=== PATIENT | female | born 1975 ===

== ENCOUNTER 2017-10-05 17:17 | Inpatient (IN) | payer MEDICARE, OTHER ==
[2017-10-05 17:18] VITALS: BMI 46.4
[2017-10-05 18:58] LABS: BASO # 0.1 K/uL (0.0-0.2); BASO % 0.7 % (0.0-2.0); EOS % 0.4 % (0.0-4.0); HEMOGLOBIN 12.4 g/dL (12.0-16.0); LYMPH # 2.5 K/uL (1.0-4.3); LYMPH % 28.5 % (20.0-40.0); MEAN CELL VOLUME 87.1 fl (81.0-99.0); MEAN CORPUSCULAR HEMOGLOBIN 28.3 pg (27.0-31.0); MEAN CORPUSCULAR HGB CONC 32.5 g/dL (33.0-37.0); MEAN PLATELET VOLUME 8.4 fl (7.2-11.7); MONO # 0.8 K/uL (0.0-0.8); MONO % 8.7 % (0.0-10.0); NEUT # 5.4 K/uL (1.8-7.0); NEUT % 61.7 % (50.0-75.0); RBC 4.39 Mil/uL (3.80-5.20); RED CELL DISTRIBUTION WIDTH 14.8 % (11.5-14.5); WHITE BLOOD COUNT 8.7 K/uL (4.8-10.8)
--- NOTE | 2017-10-05 18:58 | ED PDOC ---
HPI: Chest Pain Time Seen by Provider: 10/05/17 18:16 Chief Complaint (Nursing): Chest Pain Chief Complaint (Provider): Chest Pain History Per: Patient History/Exam Limitations: no limitations Onset/Duration Of Symptoms: Days (x2) Current Symptoms Are (Timing): Still Present Additional Complaint(s): 41 year old female with medical history of DVT/PE/HTN and DM, presents to the emergency department with a complaint of mid-sternal pressure associated with shortness of breath and right lower leg pain ongoing for 2 days. Patient offers no further complaints and compliant with her Xarelto. Past Medical History Reviewed: Historical Data, Nursing Documentation, Vital Signs Vital Signs: Last Vital Signs Temp 97.6 F 10/09/17 12:48 Pulse 58 L 10/09/17 12:48 Resp 20 10/09/17 12:48 BP 108/74 10/09/17 12:48 Pulse Ox 98 10/09/17 12:48 - Medical History PMH: Anxiety, Asthma, Bronchitis, HTN - Surgical History Surgical History: Cholecystectomy - Family History Family History: States: Unknown Family Hx - Immunization History Hx Tetanus Toxoid Vaccination: No Hx Influenza Vaccination: Yes Hx Pneumococcal Vaccination: Yes - Home Medications Home Medications: Ambulatory Orders Medication Instructions Recorded Famotidine [Pepcid] 20 mg PO DAILY #20 tab 05/25/17 Rivaroxaban [Xarelto] 20 mg PO DAILY 10/05/17 Ondansetron ODT [Zofran ODT] 4 mg PO Q8H PRN #21 odt 10/09/17 - Allergies Allergies/Adverse Reactions: Allergies Allergy/AdvReac Type Severity Reaction Status Date / Time egg Allergy RASH Verified 10/05/17 17:35 mushroom Allergy RASH Verified 10/05/17 17:35 caffeine AdvReac DIZZINESS Verified 10/05/17 17:35 Milk Containing Products AdvReac RASH Verified 10/05/17 17:35 augmentin Allergy Mild RASH Uncoded 10/05/17 17:35 pollen Allergy SHORTNESS Uncoded 10/05/17 17:35 OF BREATH Review of Systems ROS Statement: Except As Marked, All Systems Reviewed And Found Negative Cardiovascular: Positive for: Chest Pain (mid-sternum pressure) Respiratory: Positive for: Shortness of Breath Musculoskeletal: Positive for: Leg Pain (lower right) Physical Exam - Reviewed Nursing Documentation Reviewed: Yes Vital Signs Reviewed: Yes - Physical Exam Appears: Positive for: No Acute Distress Head Exam: Positive for: ATRAUMATIC, NORMAL INSPECTION, NORMOCEPHALIC Skin: Positive for: Normal Color Eye Exam: Positive for: Normal appearance ENT: Positive for: Normal ENT Inspection Neck: Positive for: Normal Cardiovascular/Chest: Positive for: Regular Rate, Rhythm, Other (mid-sternum tenderness). Negative for: Chest Non Tender, Murmur Respiratory: Positive for: Normal Breath Sounds Gastrointestinal/Abdominal: Positive for: Normal Exam, Soft. Negative for: Tenderness Back: Positive for: Normal Inspection. Negative for: L CVA Tenderness, R CVA Tenderness Extremity: Positive for: Pedal Edema (1+ bilaterally), Calf Tenderness ( bilaterally) Neurologic/Psych: Positive for: Alert, Oriented. Negative for: Motor/Sensory Deficits - Laboratory Results Result Diagrams: 10/09/17 04:20 10/09/17 04:20 - ECG O2 Sat by Pulse Oximetry: 98 (RA) Pulse Ox Interpretation: Normal Medical Decision Making Medical Decision Making: Initial Impression: Chest pain; Shortness of breath; Lower extremity pain Initial Plan: * CTA chest * EKG * CMP * Troponin I * Urine * Urine dipstick * CBC * D Dimer * PTT * PT * CXR * UA * US duplex LE bilaterally Scribe Attestation: Documented by Muriel Valero, acting as a scribe for Mary Sarkar MD. Provider Scribe Attestation: All medical record entries made by the Scribe were at my direction and personally dictated by me. I have reviewed the chart and agree that the record accurately reflects my personal performance of the history, physical exam, medical decision making, and the department course for this patient. I have also personally directed, reviewed, and agree with the discharge instructions and disposition. Disposition - Clinical Impression Clinical Impression: Chest pain - Patient ED Disposition Is Patient to be Admitted: Transfer of Care - Disposition Disposition Time: 19:00 Condition: STABLE Patient Signed Over To: Andrew Navarro
[2017-10-05 19:09] LABS: ALB/GLOB RATIO 1.3 (1.0-2.1); ALBUMIN 3.9 g/dL (3.5-5.0); ALT/SGPT 24 U/L (9-52); AST/SGOT 32 U/L (14-36); BLOOD UREA NITROGEN 14 mg/dl (7-17); CALCIUM 8.9 mg/dL (8.4-10.2); GFR AFRICAN-AMERICAN > 60; GFR NON-AFRICAN AMERICAN > 60
[2017-10-05 19:13] LABS: INR 1.1 (0.9-1.2); PROTHROMBIN TIME 11.7 Seconds (9.8-13.1)
[2017-10-05 19:14] LABS: PARTIAL THROMBOPLASTIN TIME 30.6 Seconds (25.6-37.1)
[2017-10-05] MEDS ORDERED: Sodium Chloride 0.9% 100 ML ONE (19:15)
[2017-10-05] MEDS ORDERED: Iodixanol 320 MG/ML 100 ML BOTTLE IV ONE (19:15)
--- NOTE | 2017-10-05 19:32 | ED PDOC ---
- Laboratory Results Result Diagrams: 10/05/17 18:52 10/05/17 18:52 - ECG O2 Sat by Pulse Oximetry: 98 (RA) Medical Decision Making Medical Decision Making: Time: 1899 --Patient is endorsed to provider by Dr. Sarkar, pending CT/US results and final disposition. Time: 1939 --US bilateral LE FINDINGS: Right deep veins: Unremarkable. No DVT in the right common femoral, femoral, proximal deep femoral or popliteal veins. The veins demonstrate normal color flow, are normally compressible, with normal phasic flow and/or augmentation response. Right superficial veins: Unremarkable. No thrombus in the visualized right great saphenous vein. Left deep veins: Unremarkable. No DVT in the left common femoral, femoral, proximal deep femoral or popliteal veins. The veins demonstrate normal color flow, are normally compressible, with normal phasic flow and/or augmentation response. Left superficial veins: Unremarkable. No thrombus in the visualized left great saphenous vein. IMPRESSION: No evidence of acute deep venous thrombosis in the bilateral lower extremities. Time: 2024 --CTA chest FINDINGS: Pulmonary arteries: No evidence of acute pulmonary embolism up to the major segmental level.One or more very small peripheral pulmonary emboli cannot be excluded. Correlate clinically. Aorta: No acute findings. No thoracic aortic aneurysm. Lungs: Granuloma in the right middle lobe. No consolidation. Pleural space: Unremarkable. No significant effusion. No pneumothorax. Heart: Unremarkable. No cardiomegaly. No significant pericardial effusion. No evidence of RV dysfunction. Bones/joints: No acute fracture. No dislocation. Soft tissues: Unremarkable. Lymph nodes: Unremarkable. No enlarged lymph nodes. Liver: 5.3 cm hypodensity in the liver. Gallbladder and bile ducts: Cholecystectomy clips Adrenals: Right adrenal thickening. IMPRESSION: 1. No evidence of acute pulmonary embolism up to the major segmental level.One or more very small peripheral pulmonary emboli cannot be excluded. Correlate clinically. 2. 5.3 cm hypodensity in the liver. Correlate with ultrasound. Time: 2032 --Patient continues to report persistent pain. Will be admitted to telemetry for chest pain to R/O ACS. --Vitals are currently stable. Scribe Attestation: Documented by Muriel Valero, acting as a scribe for Andrew Navarro MD. Provider Scribe Attestation: All medical record entries made by the Scribe were at my direction and personally dictated by me. I have reviewed the chart and agree that the record accurately reflects my personal performance of the history, physical exam, medical decision making, and the department course for this patient. I have also personally directed, reviewed, and agree with the discharge instructions and disposition. Disposition Discussed With : Jim Sahu Doctor Will See Patient In The: Hospital Counseled Patient/Family Regarding: Studies Performed, Diagnosis - Clinical Impression Clinical Impression: Chest pain - POA Present On Arrival: None - Disposition Disposition: Hospitalized as Observation Patient Disposition Time: 21:00 Condition: FAIR
[2017-10-05 20:14] LABS: SQUAMOUS EPITHIAL 2 /hpf (0-5); URINE BILIRUBIN NEGATIVE (NEGATIVE); URINE BLOOD NEGATIVE (NEGATIVE); URINE CLARITY SLIGHTY-CLOUDY (Clear); URINE COLOR YELLOW (YELLOW); URINE GLUCOSE (UA) NEG (Normal); URINE LEUKOCYTE ESTERASE NEG Leu/uL (Negative); URINE PROTEIN NEGATIVE (NEGATIVE); URINE UROBILINOGEN 0.2-1.0 mg/dL (0.2-1.0)
--- NOTE | 2017-10-06 08:24 | RAD ---
HISTORY: CP COMPARISON: Chest radiographs 06/22/2013. FINDINGS: LUNGS: No active pulmonary disease. PLEURA: No significant pleural effusion identified, no pneumothorax apparent. CARDIOVASCULAR: Normal. OSSEOUS STRUCTURES: No significant abnormalities. VISUALIZED UPPER ABDOMEN: Normal. OTHER FINDINGS: None. IMPRESSION: No interval acute cardiopulmonary disease appreciated.
--- NOTE | 2017-10-06 08:36 | CP.PCM.HP ---
<Stephanie Albright - Last Filed: 10/06/17 15:11> History of Present Illness - History of Present Illness History of Present Illness: 41 yo F with PM hypertension, DVT/PE, diabetes (?) presented to ED with compaint of mid-sternal pressure associated with shortness of breath and right lower leg pain ongoing for 2 days. CTA chest - no pulm embolus; no pneumothorax. small granuloma in right middle lobe. incidental 5.3 cm lucency in medial left lobe liver. CXR: no active acute disease EKG: sinus, no acute changes in leads B/l LE Duplex: no DVT CMP unremarkable Troponin I - neg x2 CBC unremarkable D Dimer 165 PTT/PT/ INR wnl When seen this morning on the floor, she stated chest pain had improved but complained of abdominal pain/discomfort when defecating and overall. Present on Admission - Present on Admission Any Indicators Present on Admission: No Review of Systems - Review of Systems All systems: reviewed and no additional remarkable complaints except (as per HPI ) Past Patient History - Past Medical History & Family History Past Medical History?: Yes - Past Social History Smoking Status: Never Smoked - CARDIAC Hx Cardiac Disorders: Yes Hx Hypertension: Yes - PULMONARY Hx Respiratory Disorders: Yes Hx Asthma: Yes Hx Bronchitis: Yes Hx Pulmonary Embolism: Yes - NEUROLOGICAL Hx Neurological Disorder: No - HEMATOLOGICAL/ONCOLOGICAL Hx Blood Disorders: Yes Hx Anemia: Yes Other/Comment: dvt - INTEGUMENTARY Hx Dermatological Problems: No - MUSCULOSKELETAL/RHEUMATOLOGICAL Hx Musculoskeletal Disorders: No Hx Falls: No - GASTROINTESTINAL Hx Gastrointestinal Disorders: Yes Other/Comment: H.pylori - GENITOURINARY/GYNECOLOGICAL Hx Genitourinary Disorders: No - PSYCHIATRIC Hx Psychophysiologic Disorder: Yes Hx Anxiety: Yes Hx Substance Use: No - SURGICAL HISTORY Hx Surgeries: Yes Hx Section: Yes (x2) Hx Cholecystectomy: Yes Hx Tubal Ligation: Yes Other/Comment: Ovarian cyst removal. cyst removal from head due to fluids (as per fluids) - ANESTHESIA Hx Anesthesia: Yes Hx Anesthesia Reactions: No Meds Allergies/Adverse Reactions: Allergies Allergy/AdvReac Type Severity Reaction Status Date / Time egg Allergy RASH Verified 10/05/17 17:35 mushroom Allergy RASH Verified 10/05/17 17:35 caffeine AdvReac DIZZINESS Verified 10/05/17 17:35 Milk Containing Products AdvReac RASH Verified 10/05/17 17:35 augmentin Allergy Mild RASH Uncoded 10/05/17 17:35 pollen Allergy SHORTNESS Uncoded 10/05/17 17:35 OF BREATH Physical Exam - Constitutional Appears: No Acute Distress - Eye Exam Eye Exam: Normal appearance - ENT Exam ENT Exam: Mucous Membranes Moist - Respiratory Exam Respiratory Exam: Clear to Auscultation Bilateral, NORMAL BREATHING PATTERN. absent: Respiratory Distress - Cardiovascular Exam Cardiovascular Exam: REGULAR RHYTHM - GI/Abdominal Exam GI & Abdominal Exam: Normal Bowel Sounds, Soft, Tenderness - Extremities Exam Extremities exam: Positive for: normal inspection. Negative for: calf tenderness - Neurological Exam Neurological exam: Alert - Skin Skin Exam: Normal Color, Warm Results - Vital Signs Recent Vital Signs: Last Vital Signs Temp 97.8 F 10/06/17 08:26 Pulse 60 10/06/17 08:26 Resp 18 10/06/17 08:26 BP 104/69 10/06/17 08:26 Pulse Ox 99 10/06/17 08:26 - Labs Result Diagrams: 10/06/17 08:50 10/06/17 08:57 Labs: Laboratory Results - last 24 hr 10/05/17 10/05/17 10/05/17 18:52 18:52 18:52 WBC 8.7 RBC 4.39 Hgb 12.4 Hct 38.2 MCV 87.1 D MCH 28.3 MCHC 32.5 L RDW 14.8 H Plt Count 250 MPV 8.4 Neut % (Auto) 61.7 Lymph % (Auto) 28.5 [place] % (Auto) 8.7 Eos % (Auto) 0.4 Baso % (Auto) 0.7 Neut # (Auto) 5.4 Lymph # (Auto) 2.5 [place] # (Auto) 0.8 Eos # (Auto) 0.0 Baso # (Auto) 0.1 PT 11.7 INR 1.1 APTT 30.6 D-Dimer, Quantitative 165 Sodium 140 Potassium 4.1 Chloride 102 Carbon Dioxide 27 Anion Gap 15 BUN 14 Creatinine 0.8 Est GFR ( Amer) > 60 Est GFR (Non-Af Amer) > 60 POC Glucose (mg/dL) Random Glucose 89 Calcium 8.9 Total Bilirubin 0.4 AST 32 ALT 24 Alkaline Phosphatase 73 Troponin I < 0.0120 Total Protein 7.0 Albumin 3.9 Globulin 3.1 Albumin/Globulin Ratio 1.3 Urine Color Urine Clarity Urine pH Ur Specific [place] Urine Protein Urine Glucose (UA) Urine Ketones Urine Blood Urine Nitrate Urine Bilirubin Urine Urobilinogen Ur Leukocyte Esterase Ur Squamous Epith Cells 10/05/17 10/05/17 10/06/17 19:12 22:44 03:35 WBC RBC Hgb Hct MCV MCH MCHC RDW Plt Count MPV Neut % (Auto) Lymph % (Auto) [place] % (Auto) Eos % (Auto) Baso % (Auto) Neut # (Auto) Lymph # (Auto) [place] # (Auto) Eos # (Auto) Baso # (Auto) PT INR APTT D-Dimer, Quantitative Sodium Potassium Chloride Carbon Dioxide Anion Gap BUN Creatinine Est GFR ( Amer) Est GFR (Non-Af Amer) POC Glucose (mg/dL) 95 94 Random Glucose Calcium Total Bilirubin AST ALT Alkaline Phosphatase Troponin I Total Protein Albumin Globulin Albumin/Globulin Ratio Urine Color Yellow Urine Clarity Slighty-cloudy Urine pH 5.0 Ur Specific [place] 1.029 Urine Protein Negative Urine Glucose (UA) Neg Urine Ketones Trace Urine Blood Negative Urine Nitrate Negative Urine Bilirubin Negative Urine Urobilinogen 0.2-1.0 Ur Leukocyte Esterase Neg Ur Squamous Epith Cells 2 10/06/17 05:39 WBC RBC Hgb Hct MCV MCH MCHC RDW Plt Count MPV Neut % (Auto) Lymph % (Auto) [place] % (Auto) Eos % (Auto) Baso % (Auto) Neut # (Auto) Lymph # (Auto) [place] # (Auto) Eos # (Auto) Baso # (Auto) PT INR APTT D-Dimer, Quantitative Sodium Potassium Chloride Carbon Dioxide Anion Gap BUN Creatinine Est GFR ( Amer) Est GFR (Non-Af Amer) POC Glucose (mg/dL) 94 Random Glucose Calcium Total Bilirubin AST ALT Alkaline Phosphatase Troponin I Total Protein Albumin Globulin Albumin/Globulin Ratio Urine Color Urine Clarity Urine pH Ur Specific [place] Urine Protein Urine Glucose (UA) Urine Ketones Urine Blood Urine Nitrate Urine Bilirubin Urine Urobilinogen Ur Leukocyte Esterase Ur Squamous Epith Cells Assessment & Plan - Assessment and Plan (Free Text) Assessment: 41 yo F with PMH HTN, DVT/PE admitted for chest pain to r/o ACS, as well as having abdominal pain. Found to have liver nodule. Plan: - Admit to tele - Trend troponins Q8h - Resume home meds - Cardio consult - GI consult, liver u/s <Sahu,Jim K - Last Filed: 10/07/17 22:45> Results - Vital Signs Recent Vital Signs: Last Vital Signs Temp 98.5 F 10/07/17 17:08 Pulse 61 10/07/17 17:08 Resp 17 10/07/17 17:08 BP 111/75 10/07/17 17:08 Pulse Ox 98 10/07/17 17:08 - Labs Result Diagrams: 10/06/17 08:50 10/06/17 08:57 Labs: Laboratory Results - last 24 hr 10/06/17 10/06/17 10/07/17 11:44 23:17 03:34 POC Glucose (mg/dL) 83 87 C. difficile Ag & Toxin Negative 10/07/17 10/07/17 10/07/17 05:41 11:18 16:08 POC Glucose (mg/dL) 97 97 90 C. difficile Ag & Toxin Assessment & Plan - Assessment and Plan (Free Text) Plan: Patient was personally seen and examined by me in rounds with residents. Available labs and diagnostic data reviewed. Case, Patient's condition and management plan discussed with residents in rounds. Agree with resident's progress note. Plan: As ordered.
--- NOTE | 2017-10-06 08:43 | CP.PCM.CON ---
<Nisa Ramirez - Last Filed: 10/06/17 12:18> History of Present Illness - History of Present Illness History of Present Illness: PGY5 GI Initial Consult Elizabeth Khanna is a 41F w/ hx of DVT, HTN, PE who presented to the ER with complaints of epigastric pain, lower abd pain. Pt states that the pain started 3 days prior. She notes that it initially was in the epigastric area and radiated to the lower chest. She note that she also had associated diarrhea. She described the pain as sharp and rated it a 7 out of 10. She noted that it eventually subsided. She states that later that day, she started to experience suprapubic pain that radiated to the RLQ and to her upper back. She noted that her diarrhea continued. She was having x5 BM daily w/o blood or melena. She notes that she has 2 sick family members in the house. +fever. Denies any previous colonscopy or endoscopy. Was previously treated for H. Pylori in FEB, but never confirmed eradication. PMHx: DVT, PE, HTN, anxiety PSHx: denies Social hx: denies etoh, illicit drugs, and smoking Family hx: DVT, PE ROS: 12 point ROS conducted neg other than above Past Patient History - Past Medical History & Family History Past Medical History?: Yes - Past Social History Smoking Status: Never Smoked - CARDIAC Hx Cardiac Disorders: Yes Hx Hypertension: Yes - PULMONARY Hx Respiratory Disorders: Yes Hx Asthma: Yes Hx Bronchitis: Yes Hx Pulmonary Embolism: Yes - NEUROLOGICAL Hx Neurological Disorder: No - HEMATOLOGICAL/ONCOLOGICAL Hx Blood Disorders: Yes Hx Anemia: Yes Other/Comment: dvt - INTEGUMENTARY Hx Dermatological Problems: No - MUSCULOSKELETAL/RHEUMATOLOGICAL Hx Musculoskeletal Disorders: No Hx Falls: No - GASTROINTESTINAL Hx Gastrointestinal Disorders: Yes Other/Comment: H.pylori - GENITOURINARY/GYNECOLOGICAL Hx Genitourinary Disorders: No - PSYCHIATRIC Hx Psychophysiologic Disorder: Yes Hx Anxiety: Yes Hx Substance Use: No - SURGICAL HISTORY Hx Surgeries: Yes Hx Section: Yes (x2) Hx Cholecystectomy: Yes Hx Tubal Ligation: Yes Other/Comment: Ovarian cyst removal. cyst removal from head due to fluids (as per fluids) - ANESTHESIA Hx Anesthesia: Yes Hx Anesthesia Reactions: No Meds Allergies/Adverse Reactions: Allergies Allergy/AdvReac Type Severity Reaction Status Date / Time egg Allergy RASH Verified 10/05/17 17:35 mushroom Allergy RASH Verified 10/05/17 17:35 caffeine AdvReac DIZZINESS Verified 10/05/17 17:35 Milk Containing Products AdvReac RASH Verified 10/05/17 17:35 augmentin Allergy Mild RASH Uncoded 10/05/17 17:35 pollen Allergy SHORTNESS Uncoded 10/05/17 17:35 OF BREATH - Medications Medications: Current Medications Acetaminophen (Tylenol 325mg Tab) 650 mg PO Q6 PRN PRN Reason: Pain, moderate (4-7) Last Admin: 10/06/17 01:19 Dose: 650 mg Ondansetron HCl (Zofran Odt) 4 mg PO Q8H PRN PRN Reason: Nausea/Vomiting Last Admin: 10/06/17 01:19 Dose: 4 mg Physical Exam - Constitutional Appears: Well, No Acute Distress - Head Exam Head Exam: ATRAUMATIC, NORMOCEPHALIC - Eye Exam Eye Exam: Normal appearance - ENT Exam ENT Exam: Mucous Membranes Moist, Normal Exam - Respiratory Exam Respiratory Exam: Clear to Auscultation Bilateral, NORMAL BREATHING PATTERN. absent: Rales, Rhonchi, Wheezes, Respiratory Distress - Cardiovascular Exam Cardiovascular Exam: REGULAR RHYTHM, +S1, +S2 - GI/Abdominal Exam GI & Abdominal Exam: Hyperactive Bowel Sounds, Soft, Tenderness (suprapubic). absent: Distended, Firm, Guarding, Organomegaly, Pulsatile Mass, Rebound, Rigid - Extremities Exam Extremities exam: Negative for: joint swelling, pedal edema - Neurological Exam Neurological exam: Alert, Oriented x3 - Psychiatric Exam Psychiatric exam: Normal Affect, Normal Mood - Skin Skin Exam: Dry, Intact, Normal Color, Warm Results - Vital Signs Recent Vital Signs: Last Vital Signs Temp 97.8 F 10/06/17 08:26 Pulse 60 10/06/17 08:26 Resp 18 10/06/17 08:26 BP 104/69 10/06/17 08:26 Pulse Ox 99 10/06/17 08:26 - Labs Result Diagrams: 10/06/17 08:50 10/06/17 08:57 Labs: Laboratory Results - last 24 hr 10/05/17 10/05/17 10/05/17 18:52 18:52 18:52 WBC 8.7 RBC 4.39 Hgb 12.4 Hct 38.2 MCV 87.1 D MCH 28.3 MCHC 32.5 L RDW 14.8 H Plt Count 250 MPV 8.4 Neut % (Auto) 61.7 Lymph % (Auto) 28.5 [place] % (Auto) 8.7 Eos % (Auto) 0.4 Baso % (Auto) 0.7 Neut # (Auto) 5.4 Lymph # (Auto) 2.5 [place] # (Auto) 0.8 Eos # (Auto) 0.0 Baso # (Auto) 0.1 PT 11.7 INR 1.1 APTT 30.6 D-Dimer, Quantitative 165 Sodium 140 Potassium 4.1 Chloride 102 Carbon Dioxide 27 Anion Gap 15 BUN 14 Creatinine 0.8 Est GFR ( Amer) > 60 Est GFR (Non-Af Amer) > 60 POC Glucose (mg/dL) Random Glucose 89 Calcium 8.9 Total Bilirubin 0.4 AST 32 ALT 24 Alkaline Phosphatase 73 Troponin I < 0.0120 Total Protein 7.0 Albumin 3.9 Globulin 3.1 Albumin/Globulin Ratio 1.3 Urine Color Urine Clarity Urine pH Ur Specific [place] Urine Protein Urine Glucose (UA) Urine Ketones Urine Blood Urine Nitrate Urine Bilirubin Urine Urobilinogen Ur Leukocyte Esterase Ur Squamous Epith Cells 10/05/17 10/05/17 10/06/17 19:12 22:44 03:35 WBC RBC Hgb Hct MCV MCH MCHC RDW Plt Count MPV Neut % (Auto) Lymph % (Auto) [place] % (Auto) Eos % (Auto) Baso % (Auto) Neut # (Auto) Lymph # (Auto) [place] # (Auto) Eos # (Auto) Baso # (Auto) PT INR APTT D-Dimer, Quantitative Sodium Potassium Chloride Carbon Dioxide Anion Gap BUN Creatinine Est GFR ( Amer) Est GFR (Non-Af Amer) POC Glucose (mg/dL) 95 94 Random Glucose Calcium Total Bilirubin AST ALT Alkaline Phosphatase Troponin I Total Protein Albumin Globulin Albumin/Globulin Ratio Urine Color Yellow Urine Clarity Slighty-cloudy Urine pH 5.0 Ur Specific [place] 1.029 Urine Protein Negative Urine Glucose (UA) Neg Urine Ketones Trace Urine Blood Negative Urine Nitrate Negative Urine Bilirubin Negative Urine Urobilinogen 0.2-1.0 Ur Leukocyte Esterase Neg Ur Squamous Epith Cells 2 10/06/17 05:39 WBC RBC Hgb Hct MCV MCH MCHC RDW Plt Count MPV Neut % (Auto) Lymph % (Auto) [place] % (Auto) Eos % (Auto) Baso % (Auto) Neut # (Auto) Lymph # (Auto) [place] # (Auto) Eos # (Auto) Baso # (Auto) PT INR APTT D-Dimer, Quantitative Sodium Potassium Chloride Carbon Dioxide Anion Gap BUN Creatinine Est GFR ( Amer) Est GFR (Non-Af Amer) POC Glucose (mg/dL) 94 Random Glucose Calcium Total Bilirubin AST ALT Alkaline Phosphatase Troponin I Total Protein Albumin Globulin Albumin/Globulin Ratio Urine Color Urine Clarity Urine pH Ur Specific [place] Urine Protein Urine Glucose (UA) Urine Ketones Urine Blood Urine Nitrate Urine Bilirubin Urine Urobilinogen Ur Leukocyte Esterase Ur Squamous Epith Cells Assessment & Plan - Assessment and Plan (Free Text) Assessment: Elizabeth Khanna is a 41F w/ hx of HTN, DVT, PE who presented with abd pain, chest pain, and diarrhea Abd pain, etiology unknoww; DDx: gastroenteritis, mesenteric ischemia? Nausea (resolved) Diarrhea, r/o infectous etiology Hypodense lesion liver Plan: -hold abx for now -continue IV fluids -diet as tolerated -stool for c.diff, O&P, Culture -CT angio pending -zofran PRN -PPI 40mg daily -supportive care -will need a triple phase liver CT to eval liver lesion D/W Dr. Chen <Kitty Chen - Last Filed: 10/06/17 15:40> Meds - Medications Medications: Current Medications Acetaminophen (Tylenol 325mg Tab) 650 mg PO Q6 PRN PRN Reason: Pain, moderate (4-7) Last Admin: 10/06/17 09:58 Dose: 650 mg Famotidine (Pepcid) 20 mg PO DAILY [facility] Ondansetron HCl (Zofran Odt) 4 mg PO Q8H PRN PRN Reason: Nausea/Vomiting Last Admin: 10/06/17 01:19 Dose: 4 mg Rivaroxaban (Xarelto) 20 mg PO DAILY [facility] PRN Reason: Protocol Results - Vital Signs Recent Vital Signs: Last Vital Signs Temp 97.9 F 10/06/17 12:14 Pulse 56 L 10/06/17 12:14 Resp 18 10/06/17 12:14 BP 106/71 10/06/17 12:14 Pulse Ox 98 10/06/17 12:14 - Labs Result Diagrams: 10/06/17 08:50 10/06/17 08:57 Labs: Laboratory Results - last 24 hr 10/05/17 10/05/17 10/05/17 18:52 18:52 18:52 WBC 8.7 RBC 4.39 Hgb 12.4 Hct 38.2 MCV 87.1 D MCH 28.3 MCHC 32.5 L RDW 14.8 H Plt Count 250 MPV 8.4 Neut % (Auto) 61.7 Lymph % (Auto) 28.5 [place] % (Auto) 8.7 Eos % (Auto) 0.4 Baso % (Auto) 0.7 Neut # (Auto) 5.4 Lymph # (Auto) 2.5 [place] # (Auto) 0.8 Eos # (Auto) 0.0 Baso # (Auto) 0.1 PT 11.7 INR 1.1 APTT 30.6 D-Dimer, Quantitative 165 Sodium 140 Potassium 4.1 Chloride 102 Carbon Dioxide 27 Anion Gap 15 BUN 14 Creatinine 0.8 Est GFR ( Amer) > 60 Est GFR (Non-Af Amer) > 60 POC Glucose (mg/dL) Random Glucose 89 Hemoglobin A1c Calcium 8.9 Total Bilirubin 0.4 AST 32 ALT 24 Alkaline Phosphatase 73 Troponin I < 0.0120 Total Protein 7.0 Albumin 3.9 Globulin 3.1 Albumin/Globulin Ratio 1.3 Triglycerides Cholesterol LDL Cholesterol Direct HDL Cholesterol Vitamin B12 TSH 3rd Generation Urine Color Urine Clarity Urine pH Ur Specific [place] Urine Protein Urine Glucose (UA) Urine Ketones Urine Blood Urine Nitrate Urine Bilirubin Urine Urobilinogen Ur Leukocyte Esterase Ur Squamous Epith Cells 10/05/17 10/05/17 10/06/17 19:12 22:44 03:35 WBC RBC Hgb Hct MCV MCH MCHC RDW Plt Count MPV Neut % (Auto) Lymph % (Auto) [place] % (Auto) Eos % (Auto) Baso % (Auto) Neut # (Auto) Lymph # (Auto) [place] # (Auto) Eos # (Auto) Baso # (Auto) PT INR APTT D-Dimer, Quantitative Sodium Potassium Chloride Carbon Dioxide Anion Gap BUN Creatinine Est GFR ( Amer) Est GFR (Non-Af Amer) POC Glucose (mg/dL) 95 94 Random Glucose Hemoglobin A1c Calcium Total Bilirubin AST ALT Alkaline Phosphatase Troponin I Total Protein Albumin Globulin Albumin/Globulin Ratio Triglycerides Cholesterol LDL Cholesterol Direct HDL Cholesterol Vitamin B12 TSH 3rd Generation Urine Color Yellow Urine Clarity Slighty-cloudy Urine pH 5.0 Ur Specific [place] 1.029 Urine Protein Negative Urine Glucose (UA) Neg Urine Ketones Trace Urine Blood Negative Urine Nitrate Negative Urine Bilirubin Negative Urine Urobilinogen 0.2-1.0 Ur Leukocyte Esterase Neg Ur Squamous Epith Cells 2 10/06/17 10/06/17 10/06/17 05:39 08:50 08:50 WBC 6.6 RBC 4.38 Hgb 12.4 Hct 38.2 MCV 87.4 MCH 28.2 MCHC 32.3 L RDW 15.0 H Plt Count 244 MPV Neut % (Auto) Lymph % (Auto) [place] % (Auto) Eos % (Auto) Baso % (Auto) Neut # (Auto) Lymph # (Auto) [place] # (Auto) Eos # (Auto) Baso # (Auto) PT INR APTT D-Dimer, Quantitative Sodium Potassium Chloride Carbon Dioxide Anion Gap BUN Creatinine Est GFR ( Amer) Est GFR (Non-Af Amer) POC Glucose (mg/dL) 94 Random Glucose Hemoglobin A1c 5.7 Calcium Total Bilirubin AST ALT Alkaline Phosphatase Troponin I Total Protein Albumin Globulin Albumin/Globulin Ratio Triglycerides Cholesterol LDL Cholesterol Direct HDL Cholesterol Vitamin B12 TSH 3rd Generation Urine Color Urine Clarity Urine pH Ur Specific [place] Urine Protein Urine Glucose (UA) Urine Ketones Urine Blood Urine Nitrate Urine Bilirubin Urine Urobilinogen Ur Leukocyte Esterase Ur Squamous Epith Cells 10/06/17 10/06/17 10/06/17 08:50 08:57 14:45 WBC RBC Hgb Hct MCV MCH MCHC RDW Plt Count MPV Neut % (Auto) Lymph % (Auto) [place] % (Auto) Eos % (Auto) Baso % (Auto) Neut # (Auto) Lymph # (Auto) [place] # (Auto) Eos # (Auto) Baso # (Auto) PT INR APTT D-Dimer, Quantitative Sodium 139 Potassium 4.3 Chloride 103 Carbon Dioxide 28 Anion Gap 12 BUN 10 Creatinine 0.7 Est GFR ( Amer) > 60 Est GFR (Non-Af Amer) > 60 POC Glucose (mg/dL) Random Glucose 90 Hemoglobin A1c Calcium 8.7 Total Bilirubin 0.4 AST 31 ALT 28 Alkaline Phosphatase 74 Troponin I < 0.0120 < 0.0120 Total Protein 6.6 Albumin 3.7 Globulin 2.9 Albumin/Globulin Ratio 1.3 Triglycerides 82 Cholesterol 144 LDL Cholesterol Direct 72 HDL Cholesterol 39 Vitamin B12 320 TSH 3rd Generation 3.95 Urine Color Urine Clarity Urine pH Ur Specific [place] Urine Protein Urine Glucose (UA) Urine Ketones Urine Blood Urine Nitrate Urine Bilirubin Urine Urobilinogen Ur Leukocyte Esterase Ur Squamous Epith Cells Attending/Attestation - Attestation I have personally seen and examined this patient.: Yes I have fully participated in the care of the patient.: Yes I have reviewed all pertinent clinical information: Yes Notes (Text): 10/06/17 15:38 Patient seen and examined at bedside this am. This is a 41 yr old F w/ hx of HTN , DVT, PE not on anti coagulation or anti platelet who presented with abdominal pain, chest pain, and diarrhea. ON CT angiogram an incidental lesion found in the liver. Will get triple phase Ct scan with IV contrast to evaluate the liver lesion further and rule out malignancy vs clot. Diet as tolerated. Rest of plan after Ct scan
[2017-10-06 09:05] LABS: HEMOGLOBIN 12.4 g/dL (12.0-16.0); MEAN CELL VOLUME 87.4 fl (81.0-99.0); MEAN CORPUSCULAR HEMOGLOBIN 28.2 pg (27.0-31.0); MEAN CORPUSCULAR HGB CONC 32.3 g/dL (33.0-37.0); RBC 4.38 Mil/uL (3.80-5.20); WHITE BLOOD COUNT 6.6 K/uL (4.8-10.8)
--- NOTE | 2017-10-06 10:23 | CT ---
PROCEDURE: CT Chest with contrast (Pulmonary Angiogram) HISTORY: CP COMPARISON: None available. TECHNIQUE: Axial computed tomography images were obtained of the chest in the pulmonary arterial phase of enhancement. Coronal and sagittal reformatted images were created and reviewed. Intravenous contrast dose: Visipaque 320, 95 cc Radiation dose: Total exam DLP = 496.58 mGy-cm. This CT exam was performed using one or more of the following dose reduction techniques: Automated exposure control, adjustment of the mA and/or kV according to patient size, and/or use of iterative reconstruction technique. FINDINGS: PULMONARY ARTERIES: Unremarkable. No pulmonary embolism. AORTA: No acute findings. No thoracic aortic aneurysm. LUNGS: A 5 mm calcified granuloma seen the right middle lobe base anteriorly. Lung viera are otherwise unremarkable bilaterally. No suspicious nodule, mass or pulmonary consolidation. PLEURAL SPACES: Unremarkable. No effusion or pneuomothorax. HEART: Unremarkable. No cardiomegaly. No significant pericardial effusion. LYMPH NODES: No lymphadenopathy. BONES, CHEST WALL: Unremarkable. No fracture or destructive lesion OTHER FINDINGS: Incidental prior cholecystectomy. A 5.3 by 4.8 cm lucency seen at the medial left lobe liver potentially reflecting focal fatty infiltration. Follow-up ultrasound of the abdomen is advised for additional characterization or MRI with and without contrast. IMPRESSION: Unremarkable CT pulmonary angiogram. No pulmonary embolus. A small calcified granuloma is seen at the right middle lobe inferiorly. No alveolitis, pleural or pericardial effusion. No pneumothorax. Incidental 5.3 cm lucency medial left lobe liver for which follow-up ultrasound the abdomen is recommended. Prior cholecystectomy incidentally noted as well.
--- NOTE | 2017-10-06 11:28 | US ---
PROCEDURE: Bilateral lower extremity venous duplex Doppler. HISTORY: BLE pain COMPARISON: None available. TECHNIQUE: Bilateral common femoral, superficial femoral, popliteal and posterior tibial veins were evaluated. Flow was assessed with color Doppler, compressibility, assessment of phasic flow and augmentation response. FINDINGS: COMMON FEMORAL VEIN: Right CFV: Unremarkable. Left CFV: Unremarkable. SUPERFICIAL FEMORAL VEIN: Right SFV: Unremarkable. Left SFV: Unremarkable. POPLITEAL VEIN: Right Popliteal: Unremarkable. Left Popliteal: Unremarkable. POSTERIOR TIBIAL VEIN: Right PTV: Unremarkable. Left PTV: Unremarkable. OTHER FINDINGS: None. IMPRESSION: No evidence of deep venous thrombosis.
[2017-10-06 11:44] LABS: ALB/GLOB RATIO 1.3 (1.0-2.1); ALBUMIN 3.7 g/dL (3.5-5.0); ALT/SGPT 28 U/L (9-52); AST/SGOT 31 U/L (14-36); BLOOD UREA NITROGEN 10 mg/dl (7-17); CALCIUM 8.7 mg/dL (8.4-10.2); GFR AFRICAN-AMERICAN > 60; GFR NON-AFRICAN AMERICAN > 60; HDL CHOLESTEROL 39 MG/DL (30-70); LDL CHOLESTEROL 72 mg/dL (0-129)
--- NOTE | 2017-10-06 13:13 | CP.PCM.CON ---
History of Present Illness - History of Present Illness History of Present Illness: Consultation for evaluation of chest pain HPI: Review of Systems - Review of Systems Systems not reviewed;Unavailable: Acuity of Condition - Constitutional Constitutional: As Per HPI - EENT Eyes: As Per HPI Ears: As Per HPI Nose/Mouth/Throat: As Per HPI - Breasts Breasts: As Per HPI - Cardiovascular Cardiovascular: As Per HPI - Respiratory Respiratory: As Per HPI - Gastrointestinal Gastrointestinal: As Per HPI - Genitourinary Genitourinary: As Per HPI - Reproductive: Female Reproductive:Female: As Per HPI - Menstruation Menstruation: As Per HPI - Musculoskeletal Musculoskeletal: As Per HPI - Integumentary Integumentary: As Per HPI - Neurological Neurological: As Per HPI - Psychiatric Psychiatric: As Per HPI - Endocrine Endocrine: As Per HPI - Hematologic/Lymphatic Hematologic: As Per HPI Past Patient History - Past Medical History & Family History Past Medical History?: Yes - Past Social History Smoking Status: Never Smoked - CARDIAC Hx Cardiac Disorders: Yes Hx Hypertension: Yes - PULMONARY Hx Respiratory Disorders: Yes Hx Asthma: Yes Hx Bronchitis: Yes Hx Pulmonary Embolism: Yes - NEUROLOGICAL Hx Neurological Disorder: No - HEMATOLOGICAL/ONCOLOGICAL Hx Blood Disorders: Yes Hx Anemia: Yes Other/Comment: dvt - INTEGUMENTARY Hx Dermatological Problems: No - MUSCULOSKELETAL/RHEUMATOLOGICAL Hx Musculoskeletal Disorders: No Hx Falls: No - GASTROINTESTINAL Hx Gastrointestinal Disorders: Yes Other/Comment: H.pylori - GENITOURINARY/GYNECOLOGICAL Hx Genitourinary Disorders: No - PSYCHIATRIC Hx Psychophysiologic Disorder: Yes Hx Anxiety: Yes Hx Substance Use: No - SURGICAL HISTORY Hx Surgeries: Yes Hx Section: Yes (x2) Hx Cholecystectomy: Yes Hx Tubal Ligation: Yes Other/Comment: Ovarian cyst removal. cyst removal from head due to fluids (as per fluids) - ANESTHESIA Hx Anesthesia: Yes Hx Anesthesia Reactions: No Meds Allergies/Adverse Reactions: Allergies Allergy/AdvReac Type Severity Reaction Status Date / Time egg Allergy RASH Verified 10/05/17 17:35 mushroom Allergy RASH Verified 10/05/17 17:35 caffeine AdvReac DIZZINESS Verified 10/05/17 17:35 Milk Containing Products AdvReac RASH Verified 10/05/17 17:35 augmentin Allergy Mild RASH Uncoded 10/05/17 17:35 pollen Allergy SHORTNESS Uncoded 10/05/17 17:35 OF BREATH - Medications Medications: Current Medications Acetaminophen (Tylenol 325mg Tab) 650 mg PO Q6 PRN PRN Reason: Pain, moderate (4-7) Last Admin: 10/06/17 09:58 Dose: 650 mg Famotidine (Pepcid) 20 mg PO DAILY [facility] Ondansetron HCl (Zofran Odt) 4 mg PO Q8H PRN PRN Reason: Nausea/Vomiting Last Admin: 10/06/17 01:19 Dose: 4 mg Rivaroxaban (Xarelto) 20 mg PO DAILY [facility] PRN Reason: Protocol Physical Exam - Constitutional Appears: Well - Head Exam Head Exam: ATRAUMATIC, NORMAL INSPECTION, NORMOCEPHALIC - Eye Exam Eye Exam: EOMI, Normal appearance, PERRL Pupil Exam: NORMAL ACCOMODATION, PERRL - ENT Exam ENT Exam: Mucous Membranes Moist, Normal Exam - Neck Exam Neck exam: Positive for: Normal Inspection - Respiratory Exam Respiratory Exam: Clear to Auscultation Bilateral, NORMAL BREATHING PATTERN - Cardiovascular Exam Cardiovascular Exam: REGULAR RHYTHM - GI/Abdominal Exam GI & Abdominal Exam: Normal Bowel Sounds, Soft. absent: Tenderness - Extremities Exam Extremities exam: Positive for: normal inspection - Back Exam Back exam: NORMAL INSPECTION - Neurological Exam Neurological exam: Alert, CN II-XII Intact, Normal Gait, Oriented x3, Reflexes Normal - Psychiatric Exam Psychiatric exam: Normal Affect, Normal Mood - Skin Skin Exam: Dry, Intact, Normal Color, Warm Results - Vital Signs Recent Vital Signs: Last Vital Signs Temp 97.9 F 10/06/17 12:14 Pulse 56 L 10/06/17 12:14 Resp 18 10/06/17 12:14 BP 106/71 10/06/17 12:14 Pulse Ox 98 10/06/17 12:14 - Labs Result Diagrams: 10/06/17 08:50 10/06/17 08:57 Labs: Laboratory Results - last 24 hr 10/05/17 10/05/17 10/05/17 18:52 18:52 18:52 WBC 8.7 RBC 4.39 Hgb 12.4 Hct 38.2 MCV 87.1 D MCH 28.3 MCHC 32.5 L RDW 14.8 H Plt Count 250 MPV 8.4 Neut % (Auto) 61.7 Lymph % (Auto) 28.5 [place] % (Auto) 8.7 Eos % (Auto) 0.4 Baso % (Auto) 0.7 Neut # (Auto) 5.4 Lymph # (Auto) 2.5 [place] # (Auto) 0.8 Eos # (Auto) 0.0 Baso # (Auto) 0.1 PT 11.7 INR 1.1 APTT 30.6 D-Dimer, Quantitative 165 Sodium 140 Potassium 4.1 Chloride 102 Carbon Dioxide 27 Anion Gap 15 BUN 14 Creatinine 0.8 Est GFR ( Amer) > 60 Est GFR (Non-Af Amer) > 60 POC Glucose (mg/dL) Random Glucose 89 Hemoglobin A1c Calcium 8.9 Total Bilirubin 0.4 AST 32 ALT 24 Alkaline Phosphatase 73 Troponin I < 0.0120 Total Protein 7.0 Albumin 3.9 Globulin 3.1 Albumin/Globulin Ratio 1.3 Triglycerides Cholesterol LDL Cholesterol Direct HDL Cholesterol Vitamin B12 TSH 3rd Generation Urine Color Urine Clarity Urine pH Ur Specific [place] Urine Protein Urine Glucose (UA) Urine Ketones Urine Blood Urine Nitrate Urine Bilirubin Urine Urobilinogen Ur Leukocyte Esterase Ur Squamous Epith Cells 10/05/17 10/05/17 10/06/17 19:12 22:44 03:35 WBC RBC Hgb Hct MCV MCH MCHC RDW Plt Count MPV Neut % (Auto) Lymph % (Auto) [place] % (Auto) Eos % (Auto) Baso % (Auto) Neut # (Auto) Lymph # (Auto) [place] # (Auto) Eos # (Auto) Baso # (Auto) PT INR APTT D-Dimer, Quantitative Sodium Potassium Chloride Carbon Dioxide Anion Gap BUN Creatinine Est GFR ( Amer) Est GFR (Non-Af Amer) POC Glucose (mg/dL) 95 94 Random Glucose Hemoglobin A1c Calcium Total Bilirubin AST ALT Alkaline Phosphatase Troponin I Total Protein Albumin Globulin Albumin/Globulin Ratio Triglycerides Cholesterol LDL Cholesterol Direct HDL Cholesterol Vitamin B12 TSH 3rd Generation Urine Color Yellow Urine Clarity Slighty-cloudy Urine pH 5.0 Ur Specific [place] 1.029 Urine Protein Negative Urine Glucose (UA) Neg Urine Ketones Trace Urine Blood Negative Urine Nitrate Negative Urine Bilirubin Negative Urine Urobilinogen 0.2-1.0 Ur Leukocyte Esterase Neg Ur Squamous Epith Cells 2 10/06/17 10/06/17 10/06/17 05:39 08:50 08:50 WBC 6.6 RBC 4.38 Hgb 12.4 Hct 38.2 MCV 87.4 MCH 28.2 MCHC 32.3 L RDW 15.0 H Plt Count 244 MPV Neut % (Auto) Lymph % (Auto) [place] % (Auto) Eos % (Auto) Baso % (Auto) Neut # (Auto) Lymph # (Auto) [place] # (Auto) Eos # (Auto) Baso # (Auto) PT INR APTT D-Dimer, Quantitative Sodium Potassium Chloride Carbon Dioxide Anion Gap BUN Creatinine Est GFR ( Amer) Est GFR (Non-Af Amer) POC Glucose (mg/dL) 94 Random Glucose Hemoglobin A1c 5.7 Calcium Total Bilirubin AST ALT Alkaline Phosphatase Troponin I Total Protein Albumin Globulin Albumin/Globulin Ratio Triglycerides Cholesterol LDL Cholesterol Direct HDL Cholesterol Vitamin B12 TSH 3rd Generation Urine Color Urine Clarity Urine pH Ur Specific [place] Urine Protein Urine Glucose (UA) Urine Ketones Urine Blood Urine Nitrate Urine Bilirubin Urine Urobilinogen Ur Leukocyte Esterase Ur Squamous Epith Cells 10/06/17 10/06/17 08:50 08:57 WBC RBC Hgb Hct MCV MCH MCHC RDW Plt Count MPV Neut % (Auto) Lymph % (Auto) [place] % (Auto) Eos % (Auto) Baso % (Auto) Neut # (Auto) Lymph # (Auto) [place] # (Auto) Eos # (Auto) Baso # (Auto) PT INR APTT D-Dimer, Quantitative Sodium 139 Potassium 4.3 Chloride 103 Carbon Dioxide 28 Anion Gap 12 BUN 10 Creatinine 0.7 Est GFR ( Amer) > 60 Est GFR (Non-Af Amer) > 60 POC Glucose (mg/dL) Random Glucose 90 Hemoglobin A1c Calcium 8.7 Total Bilirubin 0.4 AST 31 ALT 28 Alkaline Phosphatase 74 Troponin I < 0.0120 Total Protein 6.6 Albumin 3.7 Globulin 2.9 Albumin/Globulin Ratio 1.3 Triglycerides 82 Cholesterol 144 LDL Cholesterol Direct 72 HDL Cholesterol 39 Vitamin B12 320 TSH 3rd Generation 3.95 Urine Color Urine Clarity Urine pH Ur Specific [place] Urine Protein Urine Glucose (UA) Urine Ketones Urine Blood Urine Nitrate Urine Bilirubin Urine Urobilinogen Ur Leukocyte Esterase Ur Squamous Epith Cells Assessment & Plan (1) Chest pain Assessment and Plan: etiology ? pulmonary vs. cardiac echo BNP telemetry ABG Status: Acute (2) Prediabetes Status: Acute (3) HTN (hypertension) Status: Acute
--- NOTE | 2017-10-06 16:19 | US ---
HISTORY: 5.3 cm hypodensity liver COMPARISON: CT angiography of the pulmonary arteries performed 10/05/2017. TECHNIQUE: Sonographic evaluation of the right upper quadrant of the abdomen. FINDINGS: LIVER: Enlarged, measuring 18.3 cm in length. Increased echogenicity of the liver parenchyma. Echogenic area in the left hepatic lobe measuring 5.6 x 4.3 x 6.2 cm. No intrahepatic bile duct dilatation. GALLBLADDER: Prior cholecystectomy. COMMON BILE DUCT: Measures 4 mm. No stones. No dilatation. PANCREAS: Unremarkable as visualized. No mass. No ductal dilatation. RIGHT KIDNEY: Measures 12.4 x 5.4 x 4.5 cm in length. Normal echogenicity. No calculus, mass, or hydronephrosis. AORTA: No aneurysmal dilatation. IVC: Unremarkable. OTHER FINDINGS: None . IMPRESSION: Hepatomegaly with steatosis. Nonspecific echogenic area within the medial left hepatic lobe measuring up to 6.2 cm as also seen on recent CT scan. Contrast-enhanced MRI can be obtained further characterization as clinically warranted.
--- NOTE | 2017-10-06 18:42 | CARD ---
APPROVED REPORT EXAM: Two-dimensional and M-mode echocardiogram with Doppler and color Doppler. Other Information Quality : GoodRhythm : NSR INDICATION Chest Pain 2D DIMENSIONS IVSd0.94 (0.7-1.1cm)LVDd4.22 (3.9-5.9cm) LVOT Diameter2.29 (1.8-2.4cm)PWd0.96 (0.7-1.1cm) IVSs1.20 (0.8-1.2cm)LVDs3.12 (2.5-4.0cm) FS (%) 26.0 %PWs1.11 (0.8-1.2cm) M-Mode DIMENSIONS Left Atrium (MM)3.71 (2.5-4.0cm)IVSd0.65 (0.7-1.1cm) Aortic Root2.62 (2.2-3.7cm)LVDd5.38 (4.0-5.6cm) Aortic Cusp Exc.1.53 (1.5-2.0cm)PWd0.85 (0.7-1.1cm) IVSs1.15 cmFS (%) 35 % LVDs3.50 (2.0-3.8cm)PWs1.35 cm Aortic Valve AoV Peak Iwfwueld416.2cm/sAoV VTI36.6cmAO Peak GR.11mmHg LVOT Peak Giswfmqh983.8cm/sLVOT VTI23.72cmAO Mean GR.6mmHg ANGELICA (VMAX)1.68aw1LED (VTI)1.24cm2 Mitral Valve MV E Qeusampl98.1cm/sMV DECEL MERE071zlPM A Gmcemphe02.1cm/s MV QSW43iaY/A ratio1.7MVA (PHT)3.39cm2 TDI Lateral E' Peak V16.46cm/sMedial E' Peak V11.98cm/sE/Lateral E'5.0 E/Medial E'6.9 Pulmonary Valve PV Peak Gtgbtoaa94.9cm/s LEFT VENTRICLE The left ventricle is normal size. There is borderline concentric left ventricular hypertrophy. The left ventricular function is normal. The left ventricular ejection fraction is within the normal range. The Ejection Fraction is 60-65%. There is normal LV segmental wall motion. The left ventricular diastolic function is normal. No left ventricle thrombus noted on this study. RIGHT VENTRICLE The right ventricle is normal size. The right ventricular systolic function is normal. ATRIA The left atrium size is normal. The right atrium size is normal. AORTIC VALVE The aortic valve is normal in structure. There is trace aortic regurgitation. There is no aortic valvular stenosis. MITRAL VALVE The mitral valve is normal in structure. There is no mitral valve stenosis. Mitral regurgitation is trace. TRICUSPID VALVE The tricuspid valve is normal in structure. There is no tricuspid valve regurgitation noted. PULMONIC VALVE The pulmonary valve is normal in structure. There is no pulmonic valvular regurgitation. GREAT VESSELS The aortic root is normal in size. The IVC is normal in size and collapses >50% with inspiration. PERICARDIAL EFFUSION The pericardium appears normal. <Conclusion> The left ventricular function is normal. The left ventricular ejection fraction is within the normal range. The Ejection Fraction is 60-65%. Mitral regurgitation is trace.
[2017-10-07] MEDS ORDERED: Iodixanol 320 MG/ML 100 ML BOTTLE IV ONE (09:21)
[2017-10-07] MEDS ORDERED: Sodium Chloride 0.9% 100 ML ONE (09:22)
--- NOTE | 2017-10-07 13:39 | PN ---
DATE: 10/07/2017 SUBJECTIVE: The patient is seen and examined. Interim events noted. Consults noted and appreciated. The patient remains in progressive care unit, on telemetry monitoring. The patient feels okay. Denies any chest pain or shortness of breath, but has coughing, nausea, and vomiting. PHYSICAL EXAMINATION: GENERAL: The patient is in no acute distress. VITAL SIGNS: Stable. HEART: S1 and S2, normal and regular. LUNGS: Good bilateral air exchange. ABDOMEN: Soft, nontender. No organomegaly. No fluids. Bowel sounds are plus. No sign of acute abdomen. No guarding. No rigidity. No rebound. EXTREMITIES: No edema. No calf swelling. No tenderness. No acute ischemia. ETL INFORMATICA DEVELOPER: Exam is essentially unchanged. DIAGNOSTIC DATA: Available diagnostic data reviewed. Telemetry monitoring does not show significant arrhythmia. ASSESSMENT AND PLAN: Overall, the patient's general medical condition is stable. Plan as ordered. Jim Sahu MD
--- NOTE | 2017-10-07 16:35 | CP.PCM.CON ---
Past Patient History - Past Medical History & Family History Past Medical History?: Yes - Past Social History Smoking Status: Never Smoked - CARDIAC Hx Cardiac Disorders: Yes Hx Hypertension: Yes - PULMONARY Hx Respiratory Disorders: Yes Hx Asthma: Yes Hx Bronchitis: Yes Hx Pulmonary Embolism: Yes - NEUROLOGICAL Hx Neurological Disorder: No - HEMATOLOGICAL/ONCOLOGICAL Hx Blood Disorders: Yes Hx Anemia: Yes Other/Comment: dvt - INTEGUMENTARY Hx Dermatological Problems: No - MUSCULOSKELETAL/RHEUMATOLOGICAL Hx Musculoskeletal Disorders: No Hx Falls: No - GASTROINTESTINAL Hx Gastrointestinal Disorders: Yes Other/Comment: H.pylori - GENITOURINARY/GYNECOLOGICAL Hx Genitourinary Disorders: No - PSYCHIATRIC Hx Psychophysiologic Disorder: Yes Hx Anxiety: Yes Hx Substance Use: No - SURGICAL HISTORY Hx Surgeries: Yes Hx Section: Yes (x2) Hx Cholecystectomy: Yes Hx Tubal Ligation: Yes Other/Comment: Ovarian cyst removal. cyst removal from head due to fluids (as per fluids) - ANESTHESIA Hx Anesthesia: Yes Hx Anesthesia Reactions: No Meds Allergies/Adverse Reactions: Allergies Allergy/AdvReac Type Severity Reaction Status Date / Time egg Allergy RASH Verified 10/05/17 17:35 mushroom Allergy RASH Verified 10/05/17 17:35 caffeine AdvReac DIZZINESS Verified 10/05/17 17:35 Milk Containing Products AdvReac RASH Verified 10/05/17 17:35 augmentin Allergy Mild RASH Uncoded 10/05/17 17:35 pollen Allergy SHORTNESS Uncoded 10/05/17 17:35 OF BREATH - Medications Medications: Current Medications Acetaminophen (Tylenol 325mg Tab) 650 mg PO Q6 PRN PRN Reason: Pain, moderate (4-7) Last Admin: 10/07/17 03:49 Dose: 650 mg Famotidine (Pepcid) 20 mg PO DAILY [facility] Last Admin: 10/07/17 08:20 Dose: 20 mg Ondansetron HCl (Zofran Odt) 4 mg PO Q8H PRN PRN Reason: Nausea/Vomiting Last Admin: 10/06/17 01:19 Dose: 4 mg Rivaroxaban (Xarelto) 20 mg PO DAILY [facility] PRN Reason: Protocol Last Admin: 10/07/17 08:20 Dose: 20 mg Results - Vital Signs Recent Vital Signs: Last Vital Signs Temp 98.4 F 10/07/17 12:39 Pulse 56 L 10/07/17 12:39 Resp 20 10/07/17 12:39 BP 122/77 10/07/17 12:39 Pulse Ox 97 10/07/17 12:39 - Labs Result Diagrams: 10/06/17 08:50 10/06/17 08:57 Labs: Laboratory Results - last 24 hr 10/06/17 10/06/17 10/06/17 11:44 16:21 21:32 POC Glucose (mg/dL) 83 88 78 C. difficile Ag & Toxin 10/06/17 10/07/17 10/07/17 23:17 03:34 05:41 POC Glucose (mg/dL) 87 97 C. difficile Ag & Toxin Negative 10/07/17 10/07/17 11:18 16:08 POC Glucose (mg/dL) 97 90 C. difficile Ag & Toxin
--- NOTE | 2017-10-07 16:41 | CP.PCM.PN ---
<Nisa Ramirez - Last Filed: 10/07/17 16:44> Subjective - Date & Time of Evaluation Date of Evaluation: 10/07/17 Time of Evaluation: 11:30 - Subjective Subjective: PGY5 GI follow-up Pt seen and examined bedside Denies any abd pain tolerated diet +BM ROS: 12 point ROS conducted, neg other than above Objective - Vital Signs/Intake and Output Vital Signs (last 24 hours): Temp Pulse Resp BP Pulse Ox 98.4 F 56 L 20 122/77 97 10/07/17 12:39 10/07/17 12:39 10/07/17 12:39 10/07/17 12:39 10/07/17 12:39 - Medications Medications: Current Medications Acetaminophen (Tylenol 325mg Tab) 650 mg PO Q6 PRN PRN Reason: Pain, moderate (4-7) Last Admin: 10/07/17 03:49 Dose: 650 mg Famotidine (Pepcid) 20 mg PO DAILY [facility] Last Admin: 10/07/17 08:20 Dose: 20 mg Ondansetron HCl (Zofran Odt) 4 mg PO Q8H PRN PRN Reason: Nausea/Vomiting Last Admin: 10/06/17 01:19 Dose: 4 mg Rivaroxaban (Xarelto) 20 mg PO DAILY [facility] PRN Reason: Protocol Last Admin: 10/07/17 08:20 Dose: 20 mg - Labs Labs: 10/06/17 08:50 10/06/17 08:57 PT 11.7 Seconds (9.8-13.1) 10/05/17 18:52 INR 1.1 (0.9-1.2) 10/05/17 18:52 APTT 30.6 Seconds (25.6-37.1) 10/05/17 18:52 - Constitutional Appears: Well, No Acute Distress - Head Exam Head Exam: ATRAUMATIC, NORMOCEPHALIC - Eye Exam Eye Exam: Normal appearance Pupil Exam: NORMAL ACCOMODATION - ENT Exam ENT Exam: Mucous Membranes Moist, Normal Exam - Neck Exam Neck Exam: Normal Inspection - Respiratory Exam Respiratory Exam: Clear to Ausculation Bilateral, NORMAL BREATHING PATTERN. absent: Rales, Rhonchi, Wheezes, Respiratory Distress - Cardiovascular Exam Cardiovascular Exam: REGULAR RHYTHM, +S1, +S2 - GI/Abdominal Exam GI & Abdominal Exam: Soft, Normal Bowel Sounds. absent: Distended, Guarding, Rigid, Tenderness, Organomegaly - Extremities Exam Extremities Exam: absent: Joint Swelling, Pedal Edema - Neurological Exam Neurological Exam: Alert, Awake, Oriented x3 - Psychiatric Exam Psychiatric exam: Normal Affect, Normal Mood - Skin Skin Exam: Dry, Intact, Normal Color, Warm Assessment and Plan - Assessment and Plan (Free Text) Assessment: Elizabeth Khanna is a 41F w/ hx of HTN, DVT, PE who presented with abd pain, chest pain, and diarrhea Abd pain, etiology unknoww; DDx: gastroenteritis, mesenteric ischemia?; resolved Nausea (resolved) Diarrhea, c.diff neg Hypodense lesion liver Plan: -hold abx for now -continue IV fluids -diet as tolerated -stool for c.diff neg; O&P, Culture pending -zofran PRN -PPI 40mg daily -supportive care -triple phase liver CT, final read pending -will decide further plans based on findings D/W Dr. Chen <Kitty Chen - Last Filed: 10/07/17 16:54> Objective - Vital Signs/Intake and Output Vital Signs (last 24 hours): Temp Pulse Resp BP Pulse Ox 98.4 F 56 L 20 122/77 97 10/07/17 12:39 10/07/17 12:39 10/07/17 12:39 10/07/17 12:39 10/07/17 12:39 - Medications Medications: Current Medications Acetaminophen (Tylenol 325mg Tab) 650 mg PO Q6 PRN PRN Reason: Pain, moderate (4-7) Last Admin: 10/07/17 03:49 Dose: 650 mg Famotidine (Pepcid) 20 mg PO DAILY [facility] Last Admin: 10/07/17 08:20 Dose: 20 mg Ondansetron HCl (Zofran Odt) 4 mg PO Q8H PRN PRN Reason: Nausea/Vomiting Last Admin: 10/06/17 01:19 Dose: 4 mg Rivaroxaban (Xarelto) 20 mg PO DAILY [facility] PRN Reason: Protocol Last Admin: 10/07/17 08:20 Dose: 20 mg - Labs Labs: 10/06/17 08:50 10/06/17 08:57 PT 11.7 Seconds (9.8-13.1) 10/05/17 18:52 INR 1.1 (0.9-1.2) 10/05/17 18:52 APTT 30.6 Seconds (25.6-37.1) 10/05/17 18:52 Attending/Attestation - Attestation I have personally seen and examined this patient.: Yes I have fully participated in the care of the patient.: Yes I have reviewed all pertinent clinical information, including history, physical exam and plan: Yes Notes (Text): 10/07/17 16:53 Patient seen and examined at bedside this am. This is a 41 yr old F w/ hx of HTN , DVT, PE not on anti coagulation or anti platelet who presented with abdominal pain, chest pain, and diarrhea. On CT angiogram an incidental lesion found in the liver. Result of triple phase Ct scan with IV contrast to evaluate the liver lesion pending for further treatment and rule out malignancy vs clot. Diet as tolerated. Rest of plan after Ct scan
[2017-10-08 08:05] LABS: HEMOGLOBIN 12.7 g/dL (12.0-16.0); MEAN CELL VOLUME 86.6 fl (81.0-99.0); MEAN CORPUSCULAR HEMOGLOBIN 28.3 pg (27.0-31.0); MEAN CORPUSCULAR HGB CONC 32.7 g/dL (33.0-37.0); RBC 4.47 Mil/uL (3.80-5.20); RED CELL DISTRIBUTION WIDTH 15.1 % (11.5-14.5); WHITE BLOOD COUNT 7.6 K/uL (4.8-10.8)
[2017-10-08 08:38] LABS: ALB/GLOB RATIO 1.2 (1.0-2.1); ALBUMIN 3.7 g/dL (3.5-5.0); ALT/SGPT 17 U/L (9-52); AST/SGOT 23 U/L (14-36); BLOOD UREA NITROGEN 14 mg/dl (7-17); CALCIUM 9.1 mg/dL (8.4-10.2); GFR AFRICAN-AMERICAN > 60; GFR NON-AFRICAN AMERICAN > 60
--- NOTE | 2017-10-08 08:47 | CP.PCM.PN ---
<Nisa Ramirez - Last Filed: 10/08/17 11:05> Subjective - Date & Time of Evaluation Date of Evaluation: 10/08/17 Time of Evaluation: 07:00 - Subjective Subjective: PGY5 GI Follow-up pt seen and examined Denies any abd pain tolerating diet +BM ROS:12 point ROS conducted, neg other than above Objective - Vital Signs/Intake and Output Vital Signs (last 24 hours): Temp Pulse Resp BP Pulse Ox 98.1 F 63 20 109/75 98 10/08/17 04:00 10/08/17 04:00 10/08/17 04:00 10/08/17 04:00 10/08/17 04:00 - Medications Medications: Current Medications Acetaminophen (Tylenol 325mg Tab) 650 mg PO Q6 PRN PRN Reason: Pain, moderate (4-7) Last Admin: 10/07/17 03:49 Dose: 650 mg Famotidine (Pepcid) 20 mg PO DAILY [facility] Last Admin: 10/07/17 08:20 Dose: 20 mg Ondansetron HCl (Zofran Odt) 4 mg PO Q8H PRN PRN Reason: Nausea/Vomiting Last Admin: 10/06/17 01:19 Dose: 4 mg Rivaroxaban (Xarelto) 20 mg PO DAILY [facility] PRN Reason: Protocol Last Admin: 10/07/17 08:20 Dose: 20 mg - Labs Labs: 10/08/17 06:45 10/08/17 06:45 PT 11.7 Seconds (9.8-13.1) 10/05/17 18:52 INR 1.1 (0.9-1.2) 10/05/17 18:52 APTT 30.6 Seconds (25.6-37.1) 10/05/17 18:52 - Constitutional Appears: Well, No Acute Distress - Head Exam Head Exam: NORMOCEPHALIC - Eye Exam Eye Exam: Normal appearance - ENT Exam ENT Exam: Mucous Membranes Moist, Normal Exam - Neck Exam Neck Exam: Normal Inspection - Respiratory Exam Respiratory Exam: Clear to Ausculation Bilateral, NORMAL BREATHING PATTERN. absent: Rales, Rhonchi, Wheezes, Respiratory Distress - Cardiovascular Exam Cardiovascular Exam: REGULAR RHYTHM, +S1, +S2 - GI/Abdominal Exam GI & Abdominal Exam: Soft, Normal Bowel Sounds. absent: Firm, Guarding, Rigid, Tenderness, Organomegaly, Rebound - Extremities Exam Extremities Exam: absent: Joint Swelling, Pedal Edema - Neurological Exam Neurological Exam: Awake, Oriented x3 - Psychiatric Exam Psychiatric exam: Normal Affect, Normal Mood - Skin Skin Exam: Dry, Intact, Normal Color, Warm Assessment and Plan - Assessment and Plan (Free Text) Assessment: Elizabeth Khanna is a 41F w/ hx of HTN, DVT, PE who presented with abd pain, chest pain, and diarrhea Abd pain. resolved Nausea (resolved) Diarrhea, c.diff neg Hepatic hemangioma Plan: -hold abx for now -advance diet to goal of regular -discussed CT LIver with radiologist, likely hemangioma -due to size >5cm, recommend repeat CT in 6-12 months -as per pt, hemangioma last year was ~4cm, recommend surgical eval as an oupt, due to continues abd discomfort -rest of care as primary team Discuss w/ Dr. Chen <Kitty Chen - Last Filed: 10/08/17 13:42> Objective - Vital Signs/Intake and Output Vital Signs (last 24 hours): Temp Pulse Resp BP Pulse Ox 97.4 F L 55 L 22 108/79 98 10/08/17 12:35 10/08/17 12:35 10/08/17 12:35 10/08/17 12:35 10/08/17 12:35 - Medications Medications: Current Medications Acetaminophen (Tylenol 325mg Tab) 650 mg PO Q6 PRN PRN Reason: Pain, moderate (4-7) Last Admin: 10/08/17 11:06 Dose: 650 mg Famotidine (Pepcid) 20 mg PO DAILY [facility] Last Admin: 10/08/17 08:53 Dose: 20 mg Ondansetron HCl (Zofran Odt) 4 mg PO Q8H PRN PRN Reason: Nausea/Vomiting Last Admin: 10/06/17 01:19 Dose: 4 mg Rivaroxaban (Xarelto) 20 mg PO DAILY [facility] PRN Reason: Protocol Last Admin: 10/08/17 08:53 Dose: 20 mg - Labs Labs: 10/08/17 06:45 10/08/17 06:45 PT 11.7 Seconds (9.8-13.1) 10/05/17 18:52 INR 1.1 (0.9-1.2) 10/05/17 18:52 APTT 30.6 Seconds (25.6-37.1) 10/05/17 18:52 Attending/Attestation - Attestation I have personally seen and examined this patient.: Yes I have fully participated in the care of the patient.: Yes I have reviewed all pertinent clinical information, including history, physical exam and plan: Yes Notes (Text): 10/08/17 13:40 This is a 41 yr old F with history of HTN, DVT, PE who presented with abdominal pain, chest pain, and diarrhea now resolved. CTAP showed 5 cm hemangioma which according to patient is old but increasing in size. LFT normal. Diarrhea resolved and C diff negative. If size increasing and or pain persistent she needs to be referred to hepatobiliary surgeon as outpatient. Rest of plan as per primary team. Thank you for letting us participate in the care of your patient
--- NOTE | 2017-10-08 08:57 | CT ---
PROCEDURE: CT Abdomen with and without intravenous contrast HISTORY: liver lesion COMPARISON: None. TECHNIQUE: Axial images of the abdomen from lung bases to iliac crest with and without intravenous contrast enhancement. Coronal and sagittal reformats generated. Oral contrast also administered. Intravenous contrast Dose: 98 cc Visipaque 320 Radiation dose: Total exam DLP = 2780 mGy-cm. This CT exam was performed using one or more of the following dose reduction techniques: Automated exposure control, adjustment of the mA and/or kV according to patient size, and/or use of iterative reconstruction technique. FINDINGS: LOWER THORAX: Unremarkable. LIVER: 5.0 x 5.2 cm hypo attenuating structure in the medial left hepatic lobe with peripheral discontiguous nodular enhancement with progressive centripetal filling consistent with hemangioma. 9 mm too small to characterize hypodensity in the right hepatic lobe (series 6, image 49). No ductal dilatation. GALLBLADDER AND BILE DUCTS: Prior cholecystectomy with surgical clips in place. PANCREAS: Unremarkable. No gross lesion or ductal dilatation. SPLEEN: Unremarkable. ADRENALS: Unremarkable. No mass. KIDNEYS AND URETERS: Unremarkable. No hydronephrosis. No solid mass. VASCULATURE: Unremarkable. No aortic aneurysm. BOWEL: Unremarkable. No obstruction. No gross mural thickening. APPENDIX: Normal appendix. PERITONEUM: Unremarkable. No free fluid. No free air. LYMPH NODES: Unremarkable. No enlarged lymph nodes. BONES: No acute fracture. OTHER FINDINGS: None. IMPRESSION: 5.0 x 5.2 cm hypo attenuating structure in the medial left hepatic lobe with peripheral discontinuous nodular enhancement with progressive centripetal filling consistent with a meningioma.
--- NOTE | 2017-10-08 12:38 | PN ---
DATE: 10/08/2017 SUBJECTIVE: The patient is seen and examined. Interim events noted. Consults noted and appreciated. The patient remains in the progressive care unit on telemetry monitoring. Feels much better. No chest pain. No abdominal pain. No nausea, vomiting, or diarrhea. The patient tolerated food very well, moved the bowels. No bleeding. No vomiting. PHYSICAL EXAMINATION: GENERAL: The patient is in no acute distress. VITAL SIGNS: Stable. HEART: S1 and S2, normal and regular. LUNGS: Good bilateral air exchange. ABDOMEN: Soft, nontender. No organomegaly. No fluids. Bowel sounds are plus and normal. No sign of acute abdomen. No guarding. No rigidity. No rebound. EXTREMITIES: No edema. No calf swelling. No tenderness. No acute ischemia. 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 DIAGNOSTIC DATA: Available diagnostic data reviewed. scan is done, but report is pending. ASSESSMENT AND PLAN: Overall, the patient's general medical condition is stable. Plan as ordered. Jim Sahu MD
[2017-10-09 05:24] LABS: HEMOGLOBIN 12.8 g/dL (12.0-16.0); MEAN CELL VOLUME 86.7 fl (81.0-99.0); MEAN CORPUSCULAR HGB CONC 33.5 g/dL (33.0-37.0); RBC 4.4 Mil/uL (3.80-5.20); RED CELL DISTRIBUTION WIDTH 15.2 % (11.5-14.5); WHITE BLOOD COUNT 8.2 K/uL (4.8-10.8)
[2017-10-09 05:33] LABS: ALB/GLOB RATIO 1.2 (1.0-2.1); ALBUMIN 3.9 g/dL (3.5-5.0); ALT/SGPT 16 U/L (9-52); AST/SGOT 23 U/L (14-36); BLOOD UREA NITROGEN 14 mg/dl (7-17); GFR AFRICAN-AMERICAN > 60; GFR NON-AFRICAN AMERICAN > 60
[2017-10-09 08:05] VITALS: PULSE 58
[2017-10-09 12:48] VITALS: BP 108/74; RESP 20; TEMP 97.6; O2SAT 98
--- NOTE | 2017-10-09 14:05 | PN ---
DATE: 10/09/2017 SUBJECTIVE: The patient is seen and examined. Interim events noted. Consults noted and appreciated. The patient complains of abdominal pain generalized, but able to eat and moving bowels. No blood. No vomiting. PHYSICAL EXAMINATION: GENERAL: The patient is in no acute distress. VITAL SIGNS: Stable. HEART: S1 and S2, normal and regular. LUNGS: Good bilateral air exchange. ABDOMEN: Soft, nontender. No organomegaly. No fluids. Bowel sounds are plus and normal. No sign of acute abdomen. No guarding. No rigidity. No rebound. EXTREMITIES: No edema. No calf swelling. No tenderness. No acute ischemia. FIELD EXAMINER: Exam is essentially unchanged. DIAGNOSTIC DATA: Available diagnostic data reviewed. CAT scan of the liver shows hemangioma. Telemetry monitoring does not reveal significant arrhythmias. ASSESSMENT AND PLAN: Overall, the patient's general medical condition is stable, does have abdominal pain, worse than yesterday today. Plan as ordered. Jim Sahu MD
--- NOTE | 2017-10-09 16:01 | CP.PCM.PN ---
Subjective - Date & Time of Evaluation Date of Evaluation: 10/09/17 Time of Evaluation: 16:01 - Subjective Subjective: echo normal cleared by GI hepatic cyst Objective - Vital Signs/Intake and Output Vital Signs (last 24 hours): Temp Pulse Resp BP Pulse Ox 97.6 F 58 L 20 108/74 98 10/09/17 12:48 10/09/17 12:48 10/09/17 12:48 10/09/17 12:48 10/09/17 12:48 - Medications Medications: Current Medications Acetaminophen (Tylenol 325mg Tab) 650 mg PO Q6 PRN PRN Reason: Pain, moderate (4-7) Last Admin: 10/09/17 08:42 Dose: 650 mg Famotidine (Pepcid) 20 mg PO DAILY [facility] Last Admin: 10/09/17 08:42 Dose: 20 mg Ondansetron HCl (Zofran Odt) 4 mg PO Q8H PRN PRN Reason: Nausea/Vomiting Last Admin: 10/06/17 01:19 Dose: 4 mg Rivaroxaban (Xarelto) 20 mg PO DAILY [facility] PRN Reason: Protocol Last Admin: 10/09/17 08:42 Dose: 20 mg - Labs Labs: 10/09/17 04:20 10/09/17 04:20 PT 11.7 Seconds (9.8-13.1) 10/05/17 18:52 INR 1.1 (0.9-1.2) 10/05/17 18:52 APTT 30.6 Seconds (25.6-37.1) 10/05/17 18:52 - Constitutional Appears: Well - Head Exam Head Exam: ATRAUMATIC, NORMAL INSPECTION, NORMOCEPHALIC - Eye Exam Eye Exam: EOMI, Normal appearance, PERRL Pupil Exam: NORMAL ACCOMODATION, PERRL - ENT Exam ENT Exam: Mucous Membranes Moist, Normal Exam - Neck Exam Neck Exam: Full ROM, Normal Inspection. absent: Lymphadenopathy - Respiratory Exam Respiratory Exam: Clear to Ausculation Bilateral, NORMAL BREATHING PATTERN - Cardiovascular Exam Cardiovascular Exam: REGULAR RHYTHM, +S1, +S2. absent: Murmur - GI/Abdominal Exam GI & Abdominal Exam: Soft, Normal Bowel Sounds. absent: Tenderness - Extremities Exam Extremities Exam: Full ROM, Normal Capillary Refill, Normal Inspection. absent : Joint Swelling, Pedal Edema - Back Exam Back Exam: NORMAL INSPECTION - Neurological Exam Neurological Exam: Alert, Awake, CN II-XII Intact, Normal Gait, Oriented x3 - Psychiatric Exam Psychiatric exam: Normal Affect, Normal Mood - Skin Skin Exam: Dry, Intact, Normal Color, Warm Assessment and Plan (1) Chest pain Status: Acute (2) Prediabetes Status: Acute (3) HTN (hypertension) Status: Acute
--- NOTE | 2017-10-09 21:34 | CARD ---
APPROVED REPORT EKG Measurement Heart [id number] <Conclusion> Normal sinus rhythm with sinus arrhythmia Normal ECG
== END 2017-10-09 16:15 | disposition home or self-care (01) | DRG 313 ==
LOC: H.ER 17:17 → UNDOADMOB 21:16 → INTOOBSV 21:16 → OBSVTOIN 21:16 → H.ERHOLD 21:16 → H.TEL 10-06 03:43 → H.ERHOLD 10-07 18:58 → OBSVTOIN 10-07 18:58
PROVIDERS: ADMIT Internal Medicine; ATTEND Internal Medicine
DX: R07.9 Chest pain, unspecified (principal); I10 Essential (primary) hypertension; R73.03 Prediabetes; R19.7 Diarrhea, unspecified; D18.03 Hemangioma of intra-abdominal structures; Z86.711 Personal history of pulmonary embolism; Z86.718 Personal history of other venous thrombosis and embolism; Z79.01 Long term (current) use of anticoagulants; Z90.49 Acquired absence of other specified parts of digestive tract

== ENCOUNTER 2017-11-10 02:17 | Emergency (ER) | payer MEDICARE, OTHER ==
[2017-11-10 02:18] VITALS: BMI 46.4
[2017-11-10] MEDS ORDERED: Sodium Chloride 0.9% 1,000 ML IV STA (02:47)
--- NOTE | 2017-11-10 03:01 | ED PDOC ---
HPI: Abdomen Time Seen by Provider: 11/10/17 02:45 Chief Complaint (Nursing): Abdominal Pain Chief Complaint (Provider): Abdominal Pain History Per: Patient History/Exam Limitations: no limitations Onset/Duration Of Symptoms: Days (x2) Current Symptoms Are (Timing): Still Present Location Of Pain/Discomfort: RUQ, Epigastric Additional Complaint(s): 42 year old female with a history of pe, dvt, asthma, and hypertension presents to the ED with epigastric and RUQ abdominal pain and chest pain associated 2 episodes of blood tinged emesis and nausea onset 2 days. Patient reports she has a hemangioma on her liver and is awaiting consultation with hepatobiliary surgeon. She denies any other medical complaints. PMD: Dr. Whitney Past Medical History Reviewed: Historical Data, Nursing Documentation, Vital Signs Vital Signs: Last Vital Signs Temp 98.1 F 11/10/17 11:34 Pulse 62 11/10/17 11:34 Resp 16 11/10/17 11:34 BP 125/80 11/10/17 11:34 Pulse Ox 100 11/10/17 11:34 - Medical History PMH: Anemia, Anxiety, Asthma, Bronchitis, HTN, Pulmonary Embolism Other PMH: Deep vein thrombosis - Surgical History Surgical History: Cholecystectomy - Family History Family History: States: Unknown Family Hx - Social History Current smoker - smoking cessation education provided: No Ex-Smoker (has not smoked in the last 12 months): No Alcohol: None Drugs: Denies - Immunization History Hx Tetanus Toxoid Vaccination: No Hx Influenza Vaccination: Yes Hx Pneumococcal Vaccination: Yes - Home Medications Home Medications: Ambulatory Orders Medication Instructions Recorded Famotidine [Pepcid] 20 mg PO DAILY #20 tab 05/25/17 Rivaroxaban [Xarelto] 20 mg PO DAILY 10/05/17 Ondansetron ODT [Zofran ODT] 4 mg PO Q8H PRN #21 odt 10/09/17 Famotidine [Pepcid] 20 mg PO Q12 #14 tab 11/10/17 Ondansetron ODT [Zofran ODT] 4 mg PO Q6H PRN #8 odt 11/10/17 - Allergies Allergies/Adverse Reactions: Allergies Allergy/AdvReac Type Severity Reaction Status Date / Time aripiprazole [From Abilify] Allergy RASH Verified 11/10/17 02:24 egg Allergy RASH Verified 10/05/17 17:35 mushroom Allergy RASH Verified 10/05/17 17:35 caffeine AdvReac DIZZINESS Verified 10/05/17 17:35 Milk Containing Products AdvReac RASH Verified 10/05/17 17:35 augmentin Allergy Mild RASH Uncoded 10/05/17 17:35 pollen Allergy SHORTNESS Uncoded 10/05/17 17:35 OF BREATH Review of Systems ROS Statement: Except As Marked, All Systems Reviewed And Found Negative Cardiovascular: Positive for: Chest Pain Gastrointestinal: Positive for: Nausea, Vomiting, Abdominal Pain (RUQ and epigastic ) Physical Exam - Reviewed Nursing Documentation Reviewed: Yes Vital Signs Reviewed: Yes - Physical Exam Appears: Positive for: Non-toxic, Uncomfortable Head Exam: Positive for: ATRAUMATIC, NORMOCEPHALIC Skin: Positive for: Normal Color, Warm, Dry Eye Exam: Positive for: EOMI, Normal appearance, PERRL Cardiovascular/Chest: Positive for: Regular Rate, Rhythm. Negative for: Murmur Respiratory: Positive for: Normal Breath Sounds. Negative for: Respiratory Distress Gastrointestinal/Abdominal: Positive for: Tenderness (RUQ and epigastric) Extremity: Positive for: Normal ROM (upper and lower) Neurologic/Psych: Positive for: Alert, Oriented (x3) - Laboratory Results Result Diagrams: 11/10/17 03:09 11/10/17 03:09 - ECG O2 Sat by Pulse Oximetry: 98 (RA) Pulse Ox Interpretation: Normal Medical Decision Making Medical Decision Making: Time: 2:46 Initial Impression: 42 year old female with abdominal pain, chest pain, nausea and vomiting Initial Plan: --labs --ekg --IV fluid --pepcid --zofran Time: 6:06 --Abdomen US Time: 7:00 --Patient endorsed to Dr. Gunn by this provider, pending US. Scribe Attestation: Documented by Su Lyle, acting as a scribe for Mo Deshpande MD Provider Scribe Attestation: All medical record entries made by the Scribe were at my direction and personally dictated by me. I have reviewed the chart and agree that the record accurately reflects my personal performance of the history, physical exam, medical decision making, and the department course for this patient. I have also personally directed, reviewed, and agree with the discharge instructions and disposition. Disposition - Clinical Impression Clinical Impression: Gastritis, Abdominal discomfort - Patient ED Disposition Is Patient to be Admitted: Transfer of Care - Disposition Disposition: Transfer of Care Disposition Time: 07:00 Condition: STABLE Prescriptions: Famotidine [Pepcid] 20 mg PO Q12 #14 tab Ondansetron ODT [Zofran ODT] 4 mg PO Q6H PRN #8 odt PRN Reason: Nausea/Vomiting Instructions: Gastritis Forms: [facility] (Bur[place]ian) Print Language: [place] Patient Signed Over To: Max Thomas
[2017-11-10 03:24] LABS: SQUAMOUS EPITHIAL < 1 /hpf (0-5); URINE BILIRUBIN NEGATIVE (NEGATIVE); URINE BLOOD NEGATIVE (NEGATIVE); URINE CLARITY SLIGHTY-CLOUDY (Clear); URINE COLOR YELLOW (YELLOW); URINE GLUCOSE (UA) NEG (Normal); URINE LEUKOCYTE ESTERASE NEG Leu/uL (Negative); URINE PROTEIN NEGATIVE (NEGATIVE); URINE UROBILINOGEN 0.2-1.0 mg/dL (0.2-1.0)
[2017-11-10 03:32] LABS: BASO % 0.4 % (0.0-2.0); EOS % 0.4 % (0.0-4.0); HEMOGLOBIN 11.9 g/dL (12.0-16.0); LYMPH # 2.1 K/uL (1.0-4.3); MEAN CELL VOLUME 85.8 fl (81.0-99.0); MEAN CORPUSCULAR HEMOGLOBIN 29.1 pg (27.0-31.0); MEAN CORPUSCULAR HGB CONC 33.9 g/dL (33.0-37.0); MEAN PLATELET VOLUME 8.5 fl (7.2-11.7); MONO # 0.7 K/uL (0.0-0.8); MONO % 10.6 % (0.0-10.0); NEUT # 4.1 K/uL (1.8-7.0); NEUT % 58.6 % (50.0-75.0); RBC 4.09 Mil/uL (3.80-5.20); RED CELL DISTRIBUTION WIDTH 15.6 % (11.5-14.5)
[2017-11-10 03:34] LABS: ALB/GLOB RATIO 1.4 (1.0-2.1); ALT/SGPT 17 U/L (9-52); AST/SGOT 27 U/L (14-36); BLOOD UREA NITROGEN 11 mg/dl (7-17); GFR AFRICAN-AMERICAN > 60; GFR NON-AFRICAN AMERICAN > 60; LIPASE 62 U/L (23-300)
[2017-11-10 03:40] LABS: INR 1.1; PROTHROMBIN TIME 12.3 Seconds (9.8-13.1)
[2017-11-10 03:51] LABS: BARBITURATES, UR NEGATIVE (NEGATIVE); BENZODIAZEPINES, UR NEGATIVE (NEGATIVE); OPIATES, UR NEGATIVE (NEGATIVE); PHENCYCLIDINE, UR NEGATIVE (NEGATIVE)
--- NOTE | 2017-11-10 06:06 | CARD ---
APPROVED REPORT Date of service: 11/10/2017 <Conclusion> Normal sinus rhythm Normal ECG
--- NOTE | 2017-11-10 07:01 | ED PDOC ---
- Laboratory Results Result Diagrams: 11/10/17 03:09 11/10/17 03:09 - ECG O2 Sat by Pulse Oximetry: 98 (RA) Medical Decision Making Medical Decision Makin.00a - received patient from Dr. Deshpande. She is pending an US Abd to evaluation of persistent RUQ pain. Patient has h/o hepatic hemangioma. 01.30a - US report. No acute findings. Pain is better. Will discharge. Disposition Doctor Will See Patient In The: Office Counseled Patient/Family Regarding: Diagnosis, Need For Followup - Clinical Impression Clinical Impression: Gastritis, Abdominal discomfort - POA Present On Arrival: None - Disposition Disposition: Routine/Home Disposition Time: 10:30 Condition: STABLE Prescriptions: Famotidine [Pepcid] 20 mg PO Q12 #14 tab Ondansetron ODT [Zofran ODT] 4 mg PO Q6H PRN #8 odt PRN Reason: Nausea/Vomiting Instructions: Gastritis Forms: [facility] (Occitan) Print Language: BULGARIAN
--- NOTE | 2017-11-10 10:42 | US ---
Date of service: 11/10/2017 HISTORY: RUQ pain COMPARISON: 06/16/[address] abdomen and pelvis. The prior study demonstrated a mass adjacent to the falciform ligament right hepatic lobe measuring 4 x 3.6 cm. 10/07/2017 three-phase CT scan documenting mass in the right hepatic lobe adjacent the falciform ligament measuring 4.8 x 5.3 cm. The findings on multiple phases indicates findings consistent with hepatic hemangioma. TECHNIQUE: Sonographic evaluation of the right upper quadrant of the abdomen. FINDINGS: LIVER: Measures 11 x 15.9 cm in length. Patent portal vein. Portal venous flow: Hepatopetal. Unremarkable echogenicity of the liver parenchyma. Hyperechoic well-circumscribed mass right hepatic lobe currently measures 3.8 x 3.9 x 3.7 cm. On the prior study this measured 5.3 x 5.6 x 6.2 cm. Hyperechoic mass right hepatic lobe 11 x 10 x 9 mm. Both masses are well-circumscribed likely benign etiology. GALLBLADDER: Status post cholecystectomy. No abnormality is seen in the gallbladder fossa. COMMON BILE DUCT: Measures 5.1 mm. No stones. No dilatation. PANCREAS: Unremarkable as visualized. No mass. No ductal dilatation. RIGHT KIDNEY: Measures 4.1 x 11.4 cm in length. Normal echogenicity. No calculus, mass, or hydronephrosis. AORTA: No aneurysmal dilatation. IVC: Unremarkable. OTHER FINDINGS: Findings in liver consistent with benign etiologies flash hemangioma for masses in the right hepatic lobe.Additional benign and/or incidental findings described above. No significant interval change compared to the prior examination(s). IMPRESSION:
[2017-11-10 11:35] VITALS: BP 125/80; PULSE 62; RESP 16; TEMP 98.1
[2017-11-11 19:41] VITALS: O2SAT 98
== END 2017-11-10 11:40 | disposition home or self-care (01) ==
LOC: H.ER 02:17
DX: K29.70 Gastritis, unspecified, without bleeding (principal); R10.9 Unspecified abdominal pain; Z86.711 Personal history of pulmonary embolism; Z86.718 Personal history of other venous thrombosis and embolism; Z88.0 Allergy status to penicillin; I10 Essential (primary) hypertension; F41.9 Anxiety disorder, unspecified
CPT/HCPCS: 76705; 80053; 81003; 81025; 82948; 83690; 84484; 85025; 85610; 85730; 93005; 96361; 96374; 96375; 99284; G0480; J1885; J2270; J2405; J7030